=== PATIENT | male | born 1965 | race Caucasian/White ===

== ENCOUNTER 2018-07-13 12:47 | Inpatient (IN) | payer MEDICAID, OTHER ==
[~2018-07-13] VITALS: Ht 167.6 cm; Wt 70.4 kg
[~2018-07-13 12:47] MED LIST: VENL-67 PO
[2018-07-13] MEDS ORDERED: RAPID SEQUENCE KIT [RSI] 1 EACH KIT ONE (13:33)
[2018-07-13 14:03] LABS: BASOPHILS % (AUTO) 0.9 % (0.0-2.0); EOSINOPHILS % (AUTO) 3.7 % (1.0-6.0); HEMATOCRIT 38.9 % (41-53); HEMOGLOBIN 13.3 g/dL (13.5-17.5); LYMPHOCYTES # (AUTO) 2.2 K/uL (1.0-4.8); LYMPHOCYTES % (AUTO) 24.6 % (22.0-44.0); MEAN CORPUSCULAR HGB CONC 34.3 G/dL (31.0-37.0); MEAN CORPUSCULAR VOLUME 79 fL (80-100); MONOCYTES # (AUTO) 0.7 K/uL (0.1-1.0); MONOCYTES % (AUTO) 7.7 % (2.0-9.0); NEUTROPHILS # (AUTO) 5.6 K/uL (1.8-7.7); NEUTROPHILS % (AUTO) 63.1 % (40.0-70.0); PLATELET COUNT (AUTO) 690 K/uL (150-450); RED BLOOD CELL COUNT(AUTO) 4.94 MIL/uL (4.50-5.90); RED CELL DISTRIBUTION WIDTH 16.5 % (11.5-14.5)
[2018-07-13 14:10] LABS: AMPHET/METH SCREEN,URINE NEGATIVE (NEGATIVE); BARBITURATE SCREEN, URINE NEGATIVE (NEGATIVE); BENZODIAZEPINES SCREEN,URINE NEGATIVE (NEGATIVE); CANNABINOID SCREEN,URINE NEGATIVE (NEGATIVE); COCAINE SCREEN,URINE NEGATIVE (NEGATIVE); METHADONE SCREEN, URINE NEGATIVE (NEGATIVE); OPIATE SCREEN,URINE NEGATIVE (NEGATIVE)
[2018-07-13 14:11] LABS: PHENCYCLIDINE SCREEN,URINE NEGATIVE (NEGATIVE)
[2018-07-13] MEDS ORDERED: ACETAMINOPHEN 500 MG TABLET PO ONE (14:15)
[2018-07-13 14:20] LABS: ANION GAP 6 mmol/L (8-16); CALCIUM, TOTAL 8.8 mg/dL (8.8-10.5); CARBON DIOXIDE 30 mmol/L (22-29); CHLORIDE 103 mmol/L (98-107); CREATININE 0.78 mg/dL (0.60-1.30); GLOMERULAR FILTR. RATE CALC > 60 mL/min (>60); GLUCOSE,RANDOM 89 mg/dL (70-110); POTASSIUM 3.7 mmol/L (3.5-5.1); SODIUM SERUM 139 mmol/L (136-145); UREA NITROGEN, BLOOD 15 mg/dL (7-18)
[2018-07-13 14:31] LABS: ALANINE AMINOTRANSFERASE 233 U/L (12-78); ALBUMIN 3.4 g/dL (3.4-5.0); ALKALINE PHOSPHATASE 77 U/L (46-116); ASPARTATE AMINOTRANSFERASE 89 U/L (15-37); BILIRUBIN,TOTAL 0.6 mg/dL (0.1-1.0); TOTAL PROTEIN, SERUM 7.5 g/dL (6.4-8.2)
[2018-07-13] MEDS ORDERED: LORazepam 2 MG TABLET PO PRN (17:00)
[2018-07-13] MEDS ORDERED: ZOLPIDEM TARTRATE 10 MG TABLET PO PRN (17:00)
[2018-07-13] MEDS ORDERED: HALOPERIDOL 5 MG TABLET PO PRN (17:00)
[2018-07-13 18:01] LABS: APPEARANCE,URINE CLEAR (CLEAR); BILIRUBIN,URINE NEGATIVE (NEGATIVE); GLUCOSE, URINE (UA) NEGATIVE (NEGATIVE); KETONES,URINE NEGATIVE (NEGATIVE); LEUKOCYTE ESTERASE ,URINE NEGATIVE (NEGATIVE); NITRATE,URINE NEGATIVE (NEGATIVE); OCCULT BLOOD,URINE NEGATIVE (NEGATIVE); PROTEIN,URINE NEGATIVE (NEGATIVE); UROBILINOGEN,URINE 0.2 mg/dL (<=1.0)
[2018-07-13 22:37] VITALS: BP 98/73
[2018-07-13 22:39] VITALS: BP 98/73
[2018-07-13] MEDS ORDERED: NICOTINE 14 MG/24 HOUR PATCH TD PRN (23:00)
[2018-07-13] MEDS ORDERED: DOCUSATE SODIUM 100 MG CAPSULE PO PRN (23:00)
[2018-07-13] MEDS ORDERED: IBUPROFEN 400 MG TABLET PO PRN (23:00)
[2018-07-13] MEDS ORDERED: GuaiFENesin/D-METHORPHAN [SUGAR-FREE] 200-20MG/10 ML SYRUP UDCUP PO PRN (23:00)
[2018-07-13] MEDS ORDERED: ALBUTEROL SULFATE HFA 90 MCG/PUFF 8 GM INHALER IH PRN (23:00)
[2018-07-13] MEDS ORDERED: LOPERAMIDE HCL 2 MG CAPSULE PO PRN (23:00)
[2018-07-13] MEDS ORDERED: MAG HYDROX/AL HYDROX/SIMETH ES 30 ML SUSPENSION UDCUP PO PRN (23:00)
[2018-07-13] MEDS ORDERED: CloNIDine HCL 0.1 MG TABLET PO PRN (23:00)
[2018-07-13] MEDS ORDERED: MAGNESIUM HYDROXIDE SUSPENSION 30 ML UDCUP PO PRN (23:00)
[2018-07-13] MEDS ORDERED: ACETAMINOPHEN 325 MG TABLET PO PRN (23:00)
[2018-07-13] MEDS ORDERED: PETROLATUM,WHITE 71 GM JELLY TP PRN (23:00)
[2018-07-13] MEDS ORDERED: ONDANSETRON HCL 4 MG TABLET PO PRN (23:00)
[2018-07-14 07:42] LABS: CHOL/HDL RATIO 5.1 (4.2-7.3); HEMOGLOBIN A1C 5.6 % (4.5-6.2); THYROID STIMULATING HORMONE 1.41 uIU/mL (0.36-3.74)
[2018-07-14 09:07] VITALS: BP 128/77
[2018-07-14] MEDS: VENLAFAXINE HCL 75 MG ER CAPSULE PO SCH (14:36)
[2018-07-14 20:11] VITALS: BP 127/74
[2018-07-15 08:00] VITALS: BP 125/60
[2018-07-15] MEDS: VENLAFAXINE HCL 75 MG ER CAPSULE PO SCH (09:15)
[2018-07-15 16:30] VITALS: BP 114/77
[2018-07-16 09:07] VITALS: BP 108/74
[2018-07-16] MEDS: VENLAFAXINE HCL 75 MG ER CAPSULE PO SCH ×2 (10:14→17:56)
[2018-07-16 16:30] VITALS: BP 110/73
[2018-07-17 08:05] VITALS: BP 109/87
[2018-07-17] MEDS: VENLAFAXINE HCL 75 MG ER CAPSULE PO SCH ×2 (10:00→17:27)
[2018-07-17 19:40] VITALS: BP 112/75
[2018-07-18 08:05] VITALS: BP 124/79
[2018-07-18] MEDS: VENLAFAXINE HCL 75 MG ER CAPSULE PO SCH ×2 (10:05→17:42)
[2018-07-18 20:02] VITALS: BP 119/75
[2018-07-19] MEDS: VENLAFAXINE HCL 75 MG ER CAPSULE PO SCH (08:38)
[2018-07-21] MEDS ORDERED: BREX1TAB PO (08:30)
== END 2018-07-19 13:45 | disposition home or self-care (01) | DRG 751 ==
LOC: EMS 12:47 → 3EI 21:30
PROVIDERS: ATTEND Psychiatry & Neurology Child & Adolescent Psychiatry
DX: F33.2 Major depressive disorder, recurrent severe without psychotic features (principal); R45.851 Suicidal ideations; D64.9 Anemia, unspecified; E78.5 Hyperlipidemia, unspecified; F17.200 Nicotine dependence, unspecified, uncomplicated; R09.02 Hypoxemia; Z59.0 Homelessness
CPT/HCPCS: 80074; 83036; 84443; 99285; G0480